=== PATIENT | male | born 1925 | race Hispanic/Latino ===

== ENCOUNTER 2016-10-15 14:56 | Emergency (ER) | payer MEDICARE, MEDICAID ==
[2016-10-15 14:57] VITALS: BMI 36.7
[2016-10-15 15:06] VITALS: O2SAT 97
[2016-10-15] MEDS ORDERED: ceFAZolin 1 GM in Sodium Chloride 0.9% 100 ML IVPB ONE (15:20)
--- NOTE | 2016-10-15 15:29 | ED PDOC ---
Upper Extremity Pain/Injury Time Seen by Provider: 10/15/16 15:15 Chief Complaint (Nursing): Upper Extremity Problem/Injury Chief Complaint (Provider): ARM PAIN History Per: Patient (89 Y/O MALE H/O DM/CAD HERE WITH LEFT ARM PAIN/SWELLING AFTER SCRATCHING EXCESSIVELY. DENIES ANY FEVERS/CHILLS.) Past Medical History Reviewed: Historical Data, Nursing Documentation, Vital Signs Vital Signs: Last Vital Signs Temp 98.0 F 10/15/16 15:04 Pulse 96 H 10/15/16 15:04 Resp 21 10/15/16 15:04 BP 111/58 L 10/15/16 15:04 Pulse Ox 97 10/15/16 15:04 - Medical History PMH: Asthma, Bronchitis, Cardia Arrhythmia, CHF, COPD (asthma, bronchitis), Dementia, Diabetes, HTN, Hypercholesterolemia, Peripheral Edema, Pneumonia Denies: Arthritis, HIV, Hypothyroidism, Chronic Kidney Disease, Rheumatoid Arthritis - Surgical History Surgical History: CABG - Family History Family History: States: Unknown Family Hx - Home Medications Home Medications: Ambulatory Orders Medication Instructions Recorded Aspirin [Ecotrin] 325 mg PO DAILY #0 tablet.dr 10/24/15 Atorvastatin Calcium [Lipitor] 10 mg PO DAILY #0 tablet 10/24/15 Acetaminophen [Tylenol 325mg tab] 650 mg PO Q4 PRN #0 tab 09/16/16 Ibuprofen [Motrin Tab] 600 mg PO Q6 PRN #0 tab 09/16/16 Albuterol Sulfate [Proair 2 puff IH Q4H PRN #1 [email or web address] 09/21/16 Respiclick] Aluminum Hydroxide/Magnesium 30 ml PO Q6 PRN 30 Days 09/21/16 [Maalox Plus 30 ml] Donepezil [Aricept] 10 mg PO HS #30 tab 09/21/16 Enalapril Maleate [Vasotec] 2.5 mg PO DAILY #30 tab 09/21/16 GlipiZIDE [Glucotrol] 10 mg PO DAILY #30 tab 09/21/16 Tamsulosin [Flomax] 0.4 mg PO DAILY #30 cap 09/21/16 Cephalexin [Keflex] 500 mg PO TID #21 capsule 10/15/16 DiphenhydrAMINE [Benadryl] 25 mg PO Q6 PRN #24 cap 10/15/16 Famotidine [Pepcid] 1 tab PO BID #10 tab 10/15/16 - Allergies Allergies/Adverse Reactions: Allergies Allergy/AdvReac Type Severity Reaction Status Date / Time No Known Allergies Allergy Verified 10/15/16 15:04 Review of Systems ROS Statement: Except As Marked, All Systems Reviewed And Found Negative Physical Exam - Reviewed Nursing Documentation Reviewed: Yes Vital Signs Reviewed: Yes - Physical Exam Appears: Positive for: Well, Non-toxic, No Acute Distress Head Exam: Positive for: ATRAUMATIC, NORMAL INSPECTION, NORMOCEPHALIC Skin: Positive for: Normal Color, Warm, Rash (CRUSTY LESIONS NOTED OVER ESCORIATED REGIONS OF DORSUM OF HAND AND FOREARM. ERYTHEMA NOTED TO ANTECUBITAL REGION NON TENDER.) Eye Exam: Positive for: EOMI, Normal appearance, PERRL ENT: Positive for: Normal ENT Inspection Neck: Positive for: Normal, Painless ROM Cardiovascular/Chest: Positive for: Regular Rate, Rhythm Respiratory: Positive for: CNT, Normal Breath Sounds Gastrointestinal/Abdominal: Positive for: Normal Exam, Bowel Sounds, Soft Back: Positive for: Normal Inspection Extremity: Positive for: Normal ROM Neurologic/Psych: Positive for: Alert, Oriented - Laboratory Results Result Diagrams: 10/15/16 13:30 10/15/16 13:30 - ECG O2 Sat by Pulse Oximetry: 97 - Progress ED Course And Treament: D/W DR. ADONIS BUTCHER 1 GM IV X 1 DOSE BENADRYL 25 MG PO X [address] LAMB. SILVADENE OINTMENT APPLIED TO SKIN LESIONS. PEPCID 20 MG X 1 DOSE IN ED. Disposition - Clinical Impression Clinical Impression: Rash - Patient ED Disposition Is Patient to be Admitted: No - Disposition Referrals: Johnny Call MD [Staff Provider] - Disposition: Routine/Home Disposition Time: 17:50 Condition: FAIR Additional Instructions: F/U WITH [facility] TOMORROW 9-12 Prescriptions: DiphenhydrAMINE [Benadryl] 25 mg PO Q6 PRN #24 cap PRN Reason: Itching / Pruritus Cephalexin [Keflex] 500 mg PO TID #21 capsule Famotidine [Pepcid] 1 tab PO BID #10 tab Instructions: Dermatitis (ED)
[2016-10-15 16:03] LABS: BASO # 0.1 K/uL (0.0-0.2); BASO % 0.5 % (0.0-2.0); EOS # 0.6 K/uL (0.0-0.7); EOS % 5.5 % (0.0-4.0); HEMATOCRIT 40.3 % (35.0-51.0); LYMPH # 2.2 K/uL (1.0-4.3); LYMPH % 20.8 % (20.0-40.0); MEAN CELL VOLUME 91.6 fl (80.0-94.0); MEAN CORPUSCULAR HGB CONC 32.8 g/dL (33.0-37.0); MEAN PLATELET VOLUME 7.8 fl (7.2-11.7); MONO # 1.1 K/uL (0.0-0.8); MONO % 10.7 % (0.0-10.0); NEUT # 6.5 K/uL (1.8-7.0); NEUT % 62.5 % (50.0-75.0); NRBC % 0.1 % (0.0-0.0); RED CELL DISTRIBUTION WIDTH 13.9 % (11.5-14.5); WHITE BLOOD COUNT 10.4 K/uL (4.8-10.8)
[2016-10-15 16:13] LABS: ALB/GLOB RATIO 1.5 (1.0-2.1); ALKALINE PHOSPHATASE 88 U/L (38-126); ALT/SGPT 33 U/L (21-72); AST/SGOT 30 U/L (17-59); BILIRUBIN,TOTAL 0.3 mg/dl (0.2-1.3); BLOOD UREA NITROGEN 20 mg/dl (9-20); CALCIUM 9.8 mg/dL (8.4-10.2); CARBON DIOXIDE 26 mmol/L (22-30); CHLORIDE 101 mmol/L (98-107); GFR AFRICAN-AMERICAN > 60; GLUCOSE,RANDOM 85 mg/dL (75-110); POTASSIUM 4.3 MMOL/L (3.6-5.0); SODIUM 135 mmol/l (132-148); TOTAL PROTEIN 6.7 G/DL (6.3-8.2)
[2016-10-15] MEDS ORDERED: Silver Sulfadiazine 1% CREAM (50 gm) ONE (16:41)
[2016-10-15] MEDS ORDERED: DiphenhydrAMINE 50 mg/ml Inj ONE (16:41)
[2016-10-15] MEDS ORDERED: DiphenhydrAMINE 50 mg/ml Inj IVP STA (16:43)
[2016-10-15] MEDS ORDERED: Silver Sulfadiazine 1% Cream (20 gm) TOP STA (16:46)
[2016-10-15 18:02] VITALS: BP 118/62; PULSE 82; RESP 18; TEMP 97.9
== END 2016-10-15 18:05 | disposition home or self-care (01) ==
LOC: H.ER 14:56
DX: R21 Rash and other nonspecific skin eruption (principal); J45.909 Unspecified asthma, uncomplicated; E11.8 Type 2 diabetes mellitus with unspecified complications; I10 Essential (primary) hypertension
CPT/HCPCS: 80053; 83605; 85025; 87040; 96374; 96375; 99283; J0690; J1200